=== PATIENT | male | born 1985 | race Caucasian/White ===

== ENCOUNTER 2017-05-08 20:00 | Emergency (ER) | payer OTHER ==
[~2017-05-08] VITALS: Ht 180.3 cm; Wt 68.4 kg
[~2017-05-08 20:00] MED LIST: KLONOPIN1 M1 PO; NAPROSYN500 MG PO; OPANA ER40 MG PO; OXYCODONE30 MG PO; PEN-VEE K,VEET250 MG PO
[2017-05-08 22:36] LABS: HEMATOCRIT 40.1 % (38.0-50.0); HEMOGLOBIN 13.5 G/DL (12.5-16.6); MCHC 33.7 G/DL (30.0-36.0); MCV 86.2 FL (86-99); PLATELET COUNT 330 K/uL (156-360); RBC DIS.WIDTH-CV 12.6 % (11.8-14.6); RBC DIS.WIDTH-SD 39.6 % (39-53); RED BLOOD COUNT 4.65 M/uL (4.00-5.50); WHITE BLOOD COUNT 8.7 K/uL (4.1-10.2)
[2017-05-08 22:48] LABS: CHLORIDE 103 mEq/L (99-109); POTASSIUM 4.2 mEq/L (3.7-5.4); SODIUM 138 mEq/L (136-147)
[2017-05-08 22:50] LABS: GLUCOSE 89 mg/dL (70-99)
[2017-05-08 22:54] LABS: CREATININE 0.9 mg/dL (0.6-1.3); GFR ESTIMATE (CALCULATED) > 59 mL/min/ (58.99-99999); UREA NITROGEN (BUN) 17 mg/dL (9-23)
[2017-05-08] MEDS ORDERED: MOTRIN600 MG PO (23:44)
[2017-05-09 00:12] VITALS: BP 129/80
== END 2017-05-09 | disposition home or self-care (01) ==
LOC: EME 20:00
PROVIDERS: Physician Assistant
DX: R10.31 Right lower quadrant pain (principal); N50.811 Right testicular pain; F17.200 Nicotine dependence, unspecified, uncomplicated
CPT/HCPCS: 74176; 76870; 80048; 85027; 99281; 99284; J1885